=== PATIENT | female | born 1970 | race Caucasian/White ===

== ENCOUNTER 2016-09-11 01:42 | Emergency (ER) | payer MEDICARE, OTHER ==
[~2016-09-11] VITALS: Ht 172.7 cm; Wt 56.7 kg
[2016-09-11 03:39] LABS: BASOPHILS % (AUTO) 0.2 % (0.0-2.0); DIFF TOTAL % 100 %; EOSINOPHILS # (AUTO) 0.1 /CMM (0.0-0.7); EOSINOPHILS % (AUTO) 1.7 % (0.0-6.0); HEMATOCRIT 36 % (33-45); LYMPHOCYTES # (AUTO) 2.1 /CMM (0.8-4.8); LYMPHOCYTES % (AUTO) 28.4 % (20.0-44.0); MEAN CORPUSCULAR HEMOGLOBIN 28 PG (26.0-33.0); MEAN CORPUSCULAR HGB CONC 33 g/dl (31.0-36.0); MEAN CORPUSCULAR VOLUME 83 fL (82-100); MONOCYTES # (AUTO) 0.4 /CMM (0.1-1.30); MONOCYTES % (AUTO) 5.1 % (2.0-12.0); NEUTROPHILS # (AUTO) 4.7 /CMM (1.8-8.9); NEUTROPHILS % (AUTO) 64.6 % (43.0-81.0); PLATELET COUNT (AUTO) 255 /CMM (150-450); RED BLOOD CELL COUNT(AUTO) 4.32 MIL/uL (4.0-5.2); WHITE BLOOD COUNT (AUTO) 7.3 K/uL (4.3-11.0)
[2016-09-11 03:41] LABS: ANION GAP 8 (5-14); CALCIUM, SERUM 8.9 mg/dL (8.5-10.1); CARBON DIOXIDE 31 mmol/L (21-32); CHLORIDE 106 mmol/L (98-107); CREATININE 0.6 mg/dL (0.6-1.3); GFR 109 mL/min (>60); GLUCOSE 101 mg/dL (74-106); POTASSIUM 3.5 mmol/L (3.5-5.1); SODIUM SERUM 142 mmol/L (136-145); UREA NITROGEN, BLOOD 19 mg/dL (7-18)
[2016-09-11 03:51] LABS: ALANINE AMINOTRANSFERASE 17 U/L (12-78); ASPARTATE AMINOTRANSFERASE 16 U/L (15-37); BILIRUBIN,DIRECT 0.1 mg/dL (0.0-0.2); BILIRUBIN,TOTAL 0.3 mg/dL (0.2-1.0); INDIRECT BILIRUBIN 0.2 mg/dL (0.0-1.1); TOTAL PROTEIN, SERUM 7.1 g/dL (6.4-8.2)
[2016-09-11 03:56] LABS: SALICYLATE 2.3 mg/dL (2.8-20.0)
[2016-09-11 03:57] LABS: ACETAMINOPHEN 0 ug/ml (10-30)
[2016-09-11 05:05] LABS: CANNABINOID, URINE NEGATIVE (NEGATIVE); PHENCYCLIDINE SCREEN,URINE NEGATIVE (NEGATIVE)
[2016-09-11 07:06] VITALS: BP 114/70
== END 2016-09-11 07:07 | disposition home or self-care (01) ==
LOC: ER 01:46
DX: F41.9 Anxiety disorder, unspecified (principal); F32.9 Major depressive disorder, single episode, unspecified; F84.0 Autistic disorder; F31.9 Bipolar disorder, unspecified; Z91.040 Latex allergy status
CPT/HCPCS: 36415; 80048-TC; 80076-TC; 80305; 85025-TC; A4606; G6038-TC; G6039-TC; G6040-TC; Z7610